=== PATIENT | female | born 1990 | race Caucasian/White ===

== ENCOUNTER 2025-05-26 14:33 | Emergency (ER) | payer OTHER, SELFPAY ==
[2025-05-26 14:35] VITALS: BP 139/85
--- NOTE | 2025-05-26 18:06 | ED.GENMED ---
History of Present Illness
General
Chief Complaint: Headache
Time Seen by Provider: 05/26/25 18:06
History of Present Illness
History of Present Illness:
FOCUSED PAST MEDICAL HISTORY
- No significant past medical history but had gestational diabetes and related hypertension
REVIEW OF OLD RECORDS
- No old records notable for review of [facility]
Note:
CHIEF COMPLAINT(S)
Localized headache for six days.
HISTORY OF PRESENT ILLNESS
The patient is a 34-year-old female presenting with a headache persisting for approximately six days. She describes the headache as localized to a specific spot on her head rather than a generalized or severe pain. The headache initially started
with mild intensity, then resolved, and later recurred. The patient noted a significant and sudden increase in pain intensity during sexual activity, described as severe enough to cause immediate distress and crying. She used Ibuprofen, which
temporarily alleviated the headache.
There is no history of recent head trauma. A previously conducted CT scan was reported as normal, providing some reassurance. However, the patient expressed significant anxiety over the possibility of an aneurysm, particularly following the acute
pain episode post-orgasm. 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
Family history is noted for maternal grandmother having had an aneurysm, which increases her concern. The patient�s mother has hypertension, but no detailed information on aneurysms in siblings or other family members. Currently, the patients pain
is described as a 3 on a 10-point scale and is considered manageable.
To address her fears and due to her history and presentation, we discussed and planned for a CT scan with intravenous contrast to further investigate any potential issues such as aneurysms.
CHRONIC MEDICAL CONDITIONS SIGNIFICANTLY AFFECTING CARE
The patients mention of stress as a potential exacerbating factor for her headache needs consideration in overall care management.
SOCIAL DETERMINANTS AFFECTING HEALTH
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
FAMILY HISTORY
Maternal grandmother had an aneurysm. Mother has hypertension.
REVIEW OF SYSTEMS
- Neurological: Localized headache without generalized severe pressure or associated neurological deficits.
- Musculoskeletal: No recent head trauma or injury reported.
PHYSICAL EXAM
General: Alert, oriented, no acute distress noted.
Skin: Warm, dry. No evidence of zoster at the right parietal scalp region
Head: Normocephalic, without signs of trauma.
Neck: Supple, trachea midline.
Eyes, Ears, Nose, Mouth, and Throat: Oral mucosa is moist.
Cardiovascular: Normal peripheral perfusion, no edema.
Respiratory: Respirations are non-labored.
Gastrointestinal: Abdomen non-distended.
Back: Normal range of motion, normal alignment.
Musculoskeletal: Normal range of motion, normal strength.
Neurological: Alert and oriented to person, place, time, and situation, no focal neurological deficit observed.
Psychiatric: Cooperative, appropriate mood and affect.
PLAN
1. Proceed with a CT scan with contrast to assess for any intracranial aneurysm or other abnormalities.
2. Discuss possible stress management strategies given her role as a student and mother.
3. Follow-up based on CT scan results and discuss next steps, potentially involving a neurologist if further assessment is considered necessary.
DIFFERENTIAL DIAGNOSIS
The Differential Diagnosis includes, in no particular order and is not limited to:
1. Tension headache
2. Migraine
3. Intracranial aneurysm
4. Cervicogenic headache
5. Sinusitis
6. Cluster headache
7. Medication overuse headache
8. Hypertension-related headache
9. Neuralgias
10. Subarachnoid hemorrhage (given the family history and severe pain with orgasm).
RADIOLOGY
- CT head negative
- CTA head and neck
LABS
- CBC and chemistries unremarkable
UPDATE
- Appears fairly comfortable throughout stay in the emergency department and described pain as 3 out of 10
- Pain is localized to the small portion of the right side of the parietal scalp
-
SUMMARY OF ENCOUNTER
The patient, a 34-year-old female, presented with localized headaches persisting for six days. The onset of severe headache coincided with sexual activity, prompting concerns about a possible aneurysm due to family history. She previously underwent
a CT scan that was normal and expressed anxiety regarding potential intracranial events. In the emergency department, a CT angiography (CTA) of the head and neck was performed to further evaluate the presence of an aneurysm or vascular
abnormalities. The results showed no aneurysm or vascular abnormality. The patient was observed to be in no acute distress and had a normal neurological exam prior to discharge.
DISPOSITION
Discharge.
ASSESSMENT
The patient was assessed with a primary diagnosis of headache, with no intracranial aneurysm or vascular abnormality detected on CTA.
PLAN
The plan involves stress management strategies and reassurance regarding the absence of intracranial vascular abnormalities. Further follow-up will depend on the response to symptomatic treatment and management of stress factors.
INDEPENDENT REVIEW OF LABS AND INTERPRETATION OF TESTS
- My independent interpretation of CT head findings is normal.
- My independent interpretation of CTA head and neck findings shows no aneurysm or vascular abnormality.
PATIENT EDUCATION AND COUNSELING
The patient was educated about the benign nature of her headache after the CTA showed no vascular issues. Stress management techniques were discussed, given her high stress levels as a student and parent.
FOLLOW-UP INSTRUCTIONS
Please follow up with a primary care physician for ongoing headache management and stress management strategies.
MEDICAL DECISION MAKING
- Complexity of Data Reviewed: Chronic conditions affecting care include stress. Differential diagnosis includes tension headache, migraine, intracranial aneurysm, cervicogenic headache, sinusitis, cluster headache, medication overuse headache,
hypertension-related headache, neuralgias, subarachnoid hemorrhage (considered due to family history and symptoms).
- Data:
Category 1:
- My independent interpretation of CT head is normal.
- My independent interpretation of CTA head and neck indicates no aneurysm or vascular abnormalities.
- Risk:
Consideration of Admission/Observation: Escalation of care including admission/observation was considered given the complexity and risk of the patients presenting complaint, exam findings, and underlying anxiety. However, ultimately I feel the
patient is safe for outpatient management with close follow up. Reasoning: Work-up reassuring, does not reveal any acute life/organ threatening processes, patients symptoms well controlled upon reevaluation, reexamination is reassuring, vitals are
stable, patient agreeable with discharge, reliable for follow-up.
DIAGNOSIS
- Headache, unspecified (R51.9)
Phy Exam
Physical Exam
Physical Exam:
See HPI
Course
Orders/Labs/Results
Orders:
Orders
05/26/25 14:41
CT Head W/o Iv Contrast Urgent
Comment:
Reason For Exam: headache
05/26/25 18:14
CT Head & Neck Angio W/wo IV Urgent
Comment:
Reason For Exam: resolving worst MOREAU of life
05/26/25 18:39
Basic Metabolic Panel Urgent
Complete Blood Count/With Diff Urgent
HCG, Serum Qualitative Screen Urgent
Comment: ADDON
05/26/25 19:05
Add On- LAB Urgent
Tests Added?: hcg qual screen
Abnormal Lab Results
05/26/25
18:39
Glucose 107 H mg/dl
(70-99)
05/26/25 18:39
05/26/25 18:39
Vital Signs
Initial and Last Documented VS:
Initial Vital Signs
Temp Pulse Resp BP Pulse Ox
36.7 C 91 18 139/85 98
05/26/25 14:35 05/26/25 14:35 05/26/25 14:35 05/26/25 14:35 05/26/25 14:35
Last Documented Vital Signs
Temp Pulse Resp BP Pulse Ox
36.7 C 91 18 122/67 98
05/26/25 14:35 05/26/25 14:35 05/26/25 14:35 05/26/25 19:00 05/26/25 19:30
*Pulse Oximetry
SaO2: 98
Oxygen Mode of Delivery: Room air
Patient hypoxic: no
*Critical Care Note
Total Time (30-74mins, 75-104mins- exclusive of procedures): Not Applicable
ED Attending Note
-
Portions of this chart may have been created with voice recognition software.� Occasional wrong word or��sound alike� substitutions may have occurred due to the inherent limitations of voice recognition software.
Discharge Plan
Departure
Patient Disposition: Home (Routine Discharge)
Date of Disposition: 05/26/25
Time of Disposition: 20:14
Patient with high blood pressure during this ER visit?: Yes
Discharge Problem:
Headache
Instructions: Headache, Adult (DC), BLOOD PRESSURE
Referrals:
Tatiana Otoole, DO [Family Provider, Family Practice]
Activity Restrictions/Additional Instructions:
Initial CAT scan of the brain showed no bleeding. Repeat CAT scan with IV contrast looking at the blood vessels showed no sign of blood vessel abnormality including no sign of aneurysm.
Interventions
Interventions:
*Risk Screen - Suicide Last Done: 05/26/25 14:35
*General Assessment Last Done: 05/26/25 14:35
*Neglect/Abuse Screening Last Done: 05/26/25 14:35
*ED COVID-19 Vaccine History Last Done: 05/26/25 14:35
*ED Influenza Vaccine History Last Done: 05/26/25 14:35
[facility] Risk Assessment Tool Last Done: 05/26/25 18:40
ED- Neurological Assessment Last Done: 05/26/25 18:40
Discharge Date and Time
Print Language: UKRAINIAN
[2025-05-26 18:38] VITALS: BP 125/79
[2025-05-26 18:47] LABS: Hematocrit 39.0 % (37.0-47.0); Hemoglobin 12.9 g/dL (12.0-16.0); Mean Corp Hgb Conc. 33.1 g/dL (33.0-37.0); Mean Corpuscular Volume 83.5 fL (81.0-99.0); Nucleated Red Blood Cells % 0 %; Platelet Count 260 10^3/uL (130-400); Red Cell Dist. Width 13.7 % (11.5-14.5)
[2025-05-26 18:59] LABS: Blood Urea Nitrogen 13 mg/dl (7-17); Calcium 9.4 mg/dl (8.4-10.2); Carbon Dioxide 29 mmol/L (22-30); Chloride 104 mmol/L (98-107); Glucose 107 mg/dl (70-99); Potassium 4.0 mmol/L (3.5-5.1); Sodium 137 mmol/L (135-145); eGFR > 60.00
[2025-05-26 19:00] VITALS: BP 122/67
[2025-05-26 19:25] LABS: HCG, Serum Qualitative Screen Negative
[2025-05-26 20:22] VITALS: BP 113/66
== END 2025-05-26 20:32 | disposition home or self-care (01) ==
LOC: EMR 14:33
PROVIDERS: EMERGENCY PHYSICIAN Emergency Medicine; FAMILY PHYSICIAN Family Medicine
DX: R51.9 Headache, unspecified (principal); Z86.32 Personal history of gestational diabetes; Z82.49 Family history of ischemic heart disease and other diseases of the circulatory system
CPT/HCPCS: 99284; 70450; 70496; 70498; 80048; 84703; 85025; Q9967